=== PATIENT | male | born 1980 | race Caucasian/White ===

== ENCOUNTER 2017-05-08 09:06 | Observation (INO) | payer BC, SELFPAY ==
[2017-05-08] VITALS (8 sets, daily range): BP systolic 109–137; BP diastolic 70–89; PULSE 58–74; RESP 14–18; TEMP 36.3–37; O2SAT 98–100; BMI 25.7; BMI 25.8; BMI 26.6
--- NOTE | 2017-05-08 09:19 | EKG12_ITS ---
Test Reason : CP Blood Pressure : / mmHG Vent. Rate : 066 BPM Atrial Rate : 066 BPM P-R Int : 172 ms QRS Dur : 088 ms QT Int : 374 ms P-R-T Axes : 058 050 051 degrees QTc Int : 392 ms Sinus rhythm with occasional Premature ventricular complexes Otherwise normal ECG Confirmed by RAMON WINSTON, RUBY ([id number]), story editor FAUZIA EVANS ([id number]) on 05/12/2017 12:55:07 PM Referred By: ERICH Confirmed By:RUBY NAVARRO MD
--- NOTE | 2017-05-08 09:25 | RAD_ITS ---
STUDY: X-RAY CHEST REASON FOR EXAM: Male, 36 years old. Chest pain TECHNIQUE: Single AP portable view of the chest. COMPARISON: None. FINDINGS: The lungs are clear and expanded. There is no demonstrated pleural abnormality. Normal size heart. Normal mediastinum and hansa. Normal visualized pulmonary arteries. Normal visualized aortic arch and descending thoracic aorta. Normal visualized thoracic spine. Normal visualized ribs, clavicles, and shoulders. There is no demonstrated abnormality of the visualized soft tissue structures of the upper abdomen. RAD/Chest 1 View (Portable) IMPRESSION: Normal x-ray examination of the chest. Electronically Signed: Sonia Brunson MD at 9:50 EDT Tel , Service support ,
[2017-05-08] MEDS: Aspirin 81 MG TAB.CHEW 324 MG PO (09:26)
[2017-05-08] MEDS: 0.9% Normal Saline 1,000 ML 150 ML IV (09:27)
[2017-05-08 09:28] LABS: Absolute Lymphocyte Count 2.47 X10^3/ul (0.83-4.51); Absolute Neutrophil Count 3.9 X10^3/uL (2.0-7.7); Basophil# 0.02 X10^3/uL; Basophil% 0.3 % (0-1); Eosinophil# 0.17 X10^3/uL; Eosinophils% 2.4 % (0-5); Hemoglobin 15.4 g/dl (13.0-16.5); Lymphocyte # 2.47 X10^3/ul (4.0); Lymphocyte % 35.5 % (19-41); Mean Corp Hgb Conc 33.5 g/gl (32-36); Mean Corpuscular Hgb 31.8 pg (27.0-32.0); Mean Corpuscular Volume 94.8 fL (80-94); Mean Platelet Vol. 9.5 fl (6.2-12.0); Monocyte# 0.33 X10^3/uL; Monocyte% 4.7 % (0-10); Neutrophil # 3.94 X10^3/uL (2.7-7.7); Neutrophil % 56.8 % (47-70); Platelet Count 175 K/mm3 (150-450); RBC Distribution Width CV 12.9 % (11.6-14.6); Red Blood Count 4.85 M/mm3 (4.6-6.2)
[2017-05-08 09:34] LABS: POSITIVE COUNT NO; POSITIVE DIFFERENTIAL NO; POSITIVE MORPHOLOGY NO
[2017-05-08 09:49] LABS: Anion Gap 5 (5-15); BUN 10 mg/dL (7-18); BUN/Creat Ratio 9.8 RATIO (10-20); Calcium,Total 8.7 mg/dL (8.5-10.1); Chloride 106 mmol/L (98-107); Creatinine, Serum 1.02 mg/dL (0.70-1.30); EST Glomerular Filtration Rate 87 mL/min (>60); Est Glom Filt Rate - Afr Amer 105 mL/min (>60); Estimated Creatinine Clearance 104.58 ml/min; Glucose 109 mg/dL (74-106); Potassium 3.9 mmol/L (3.5-5.1); Sodium Level 140 mmol/L (136-145)
--- NOTE | 2017-05-08 09:52 | CASEMGMT ---
Addendum entered by Ashley Blankenship 05/08/17 10:42: Social Work Note Provided pt with a list of primary care physicians that are local to his residence and accept [place] insurance. Pt thanked SW and not additional needs identified at this time. CARLINE Solano, SENIOR IT ARCHITECT Original Note: Social Work Note SW in to complete initial assessment as pt is anticipated to be admitted. Introduced self and role at [facility]. The pt is alert and oriented x4 and presents with pleasant affect. Pt is accompanied by his sister and reports to have adequate supports. He lives alone in a one-story home and denies access issues. Reports to be employed FT and claims to be financially stable. Denies access issues and does not anticipate discharge needs. Pt reports tobacco use and that he is down to 1 pack per week. Denies hx of mental health diagnoses or symptoms. Denies having a PCP, but his sister reports they saw a Dr. Isidro before coming in. Pt reports to use [facility] in [place]. Pt made aware that case management will follow throughout his stay to assess for needs at discharge, understanding expressed. CARLINE Solano, SENIOR IT ARCHITECT
--- NOTE | 2017-05-08 10:44 | ED.VISSUMM ---
- ER Visit Summary Date of Service: 05/08/17 Chief Complaint: Chest pain History of Present Illness: The patient is a 36 M with intermittent chest pain for the last several years but states the pain has been constant now for the past several months. Patient has had syncope. The patient states his most recent episode was last week with a near syncopal episode. Patient states he feels a vibration in his chest and pressure in his head prior to the passing out. Significant family history is significant of a hereditary disorder where the middle muscle of the heart can thicken. Family member states they have been told that this can lead to sudden . Physical Examination: Vital signs are unremarkable. Patient sitting upright in bed no acute distress. Heart is irregular. Lung sounds are clear. Abdomen is soft nontender. Lower external examination was no calf tenderness or edema. Test Results: Portable chest x-ray is unremarkable. EKG is sinus at 66 with occasional PVCs. No acute ST change. Rhythm strip shows frequent PVCs. Occasionally the patient will go into a trigeminy pattern with 2 sinus beats followed by a PVC. CBC and chemistry studies are unremarkable. Troponin is less than 0.02. Emergency Department Course and Treatment: Patient was given aspirin on arrival. At this time like to admit the patient for echocardiogram to further evaluate potential cardiomyopathy and outlet obstruction. I also feel he should be observed for any arrhythmias. Hospitalist has been contacted. Treatment Plan: [] Disposition: Admit Impression: Chest pain This note was generated with [employer] dictation software. It may contain incorrect words, spelling, and punctuation that were not noted in review of the chart prior to signing ED Disposition - Plan for ED Patient: Chief Complaint: Chest Pain Referrals: Hammad Ferreira III, MD [Primary Care Provider] -
--- NOTE | 2017-05-08 11:03 | HP.PCM_ITS ---
Problem List (1) Chest pain Status: Acute Qualifiers: Chest pain type: unspecified Qualified Code(s): R07.9 - Chest pain, unspecified History of Present Illness Date of Admission: 05/08/17 Chief Complaint: Chest pain, ongoing for months The patient is a 36 year old M with positive family history of hypertrophic cardiomyopathy who comes in with complaints of chest pain ongoing for months. Pain is located in the left side of the chest, described as sharp, pressure- like like a bubble that is going to burst. This pain seems to radiate down his left arm, associated with palpitations and an episode of syncope a couple of weeks ago and had that episode of presyncope. Patient denies any nausea or diaphoresis with this. He came to the ED at the insistence of his mother and sister. He has never seen a manager property or primary care doctor for this. In the ED his vitals were stable, EKG shows no acute ST-T changes. Troponins were negative. Past Medical History Allergies No Known Allergies Allergy (Verified 05/08/17 09:08) Home Medications: Ambulatory Orders Medication Instructions Recorded NK [NK] 05/08/17 Surgical History: arthroscopy, knee Psychiatric History: No pertinent psych hx Lives: With Family Smoking Status: Current every day smoker - *Family History Maternal History Items: Heart Disease - HCOM Sibling History Items: Heart Disease - HCOM Review of Systems Constitutional: Denies: Anorexia, Chills, Fever, Malaise, Weakness, Weight Change Eyes: Denies: Blurred vision, Cataracts, Conjunctivae Inflammation HEENT: Denies: Difficulty Hearing, Dysphasia, Head Aches, Hearing Changes, Nasal bleeding, Sinus Congestion, Sinus Drainage Cardiovascular: Reports: Chest Pain, Chest Pressure, Syncope. Denies: Claudication, Edema, Orthopnea, Palpitations, Paroxysmal Noc. Dyspnea Respiratory: Denies: Cough, Hemoptysis, Shortness of breath at rest, Shortness of breath upon exertion, Sputum production Gastrointestinal: Denies: Abdominal Pain, Constipation, Nausea, Vomiting Genitourinary: Denies: Dysuria, Incontinence Musculoskeletal: Denies: Arm Pain, Joint Pain, Joint stiffness, Joint swelling, Joint Tenderness Skin: Denies: Dryness, Pruritis, Rash, Wounds Neurological: Denies: Difficulty swallowing, Focal weakness, Numbness, Tingling Psychiatric: Denies: Anxiety, Depression, Homicidal Ideations, Suicidal Ideations Hematologic/ Lymphatic: Denies: Easy Bruising, Easy Bleeding VTE Information - Inpt Only VTE Present on Admission: No VTE Pharm Prophylaxis ordered?: No Patient Problems: Active and Suspected Problems Chest pain (Acute) - Physical Exam General: Alert, Oriented x3, Cooperative, No apparent distress HEENT: Atraumatic, PERRLA, EOMI, Normocephalic Oral: Moist Mucosa Neck: Supple Lungs: Clear to auscultation, Normal air movement Cardiovascular: Regular rate, Regular Rhythm, Normal S1, Normal S2, No murmurs Abdomen: Bowel Sounds Present, Soft, Non Tender, Non-Distended, No Hepato- splenomegaly Extremities: No edema Skin: No rashes Musculoskeletal: No Tenderness to Palpation of Joints or Extremities Lymphatic: No Cervical, Supraclavicular, or Inguinal Adenopathy Neurological: Cranial nerves II-XII grossly intact Psych/Mental Status: Normal Affect, Appropriate Vital Signs Temp Pulse Resp BP Pulse Ox 97.4 F L 70 14 131/89 H 99 05/08/17 09:07 05/08/17 10:41 05/08/17 10:41 05/08/17 10:41 05/08/17 10:41 Oxygen Delivery Method Room Air Weight: 83.915 kg Body Mass Index (BMI) 25.7 Laboratory Tests Past 24 Hrs 05/08/17 05/08/17 09:15 09:15 WBC 7.0 RBC 4.85 Hgb 15.4 Hct 46.0 MCV 94.8 H MCH 31.8 MCHC 33.5 RDW 12.9 RDW Differential 44.0 H Plt Count 175 MPV 9.5 Immature Gran % (Auto) 0.300 Neut % (Auto) 56.8 Lymph % (Auto) 35.5 Mobile % (Auto) 4.7 Eos % (Auto) 2.4 Baso % (Auto) 0.3 Absolute Neuts (auto) 3.9 Absolute Lymphs (auto) 2.47 Total Counted Not Reportable Sodium 140 Potassium 3.9 Chloride 106 Carbon Dioxide 29.0 Anion Gap 5 BUN 10 Creatinine 1.02 Estim Creat Clear Calc 104.58 Est GFR (MDRD) Af Amer 105 Est GFR (MDRD) Non-Af 87 BUN/Creatinine Ratio 9.8 L Glucose 109 H Calcium 8.7 Troponin I < 0.02 Assessment/Plan Active and Suspected Problems Chest pain (Acute) 36 year old M with positive family history of hypertrophic cardiomyopathy who comes in with complaints of chest pain ongoing for months. 1. Atypical chest pain in a 36-year-old male, chronic smoker, positive family history of heart disease, symptomatic chest pain with syncope and presyncope. Vitals were stable, initial EKG was unremarkable, initial troponin negative Plan: Admit to PCU, cardiology consult, trend troponins, 2D echo, possible stress test per cardiology. 2. Syncope, unclear etiology, cardiology consulted 3. Chronic nicotine use disorder, on replacement patch. 4. DVT PPx - early ambulation Code Visit OBSV E&M: [id number] Initial observation care L3
--- NOTE | 2017-05-08 12:06 | ECHOD_ITS ---
Reason For Study: CHEST PAIN Procedure This was a 2D Doppler, Color Flow transthoracic echocardiogram. Exam performed portable in patient room. Left Ventricle Normal LV size. Left ventricular systolic function is normal. The estimated ejection fraction is 55 %. Normal diastology for age. No regional wall motion abnormalities noted. Right Ventricle Normal RV size. Normal systolic function. Atria Normal left atrium. Normal right atrium. Mitral Valve Normal mitral valve. Mild (1+) mitral valve insufficiency. Tricuspid Valve Normal tricuspid valve. Mild tricuspid valve insufficiency. Pulmonary artery systolic pressure is 25 mmHg. Aortic Valve Normal aortic valve. Trisinus/trileaflet aortic valve. Pulmonic Valve Normal pulmonic valve. Great Vessels Normal aortic root. The pulmonary artery is normal size. Normal inferior vena cava. Pericardium/Pleural No pericardial effusion. MMode/2D Measurements & Calculations LVIDd: 4.2 cm IVSd: 1.1 cm Ao root diam: 3.0 cm LVIDs: 3.2 cm LVPWd: 0.95 cm LA dimension: 3.6 cm RVDd: 2.9 cm FS: 24.9 % LAV(MOD-bp): 61.1 ml EDV(MOD-sp4): 103.2 ml EDV(MOD-sp2): 116.0 ml LAV(MOD-bp) Indexed: 30.0 ml/m2 ESV(MOD-sp4): 56.1 ml EF(MOD-sp2): 57.8 % LAV(MOD-sp2): 57.0 ml EF(MOD-sp4): 45.6 % LAV(MOD-sp4): 58.5 ml SV(MOD-sp4): 47.1 ml SV(MOD-sp2): 67.1 ml LA A4 area: 20.8 cm2 RA A4 area: 15.8 cm2 Doppler Measurements & Calculations MV E max sayra: 97.5 cm/sec Ao V2 max: 131.3 cm/sec LV V1 max: 109.6 cm/sec MV A max sayra: 50.7 cm/sec Ao max P.9 mmHg LV V1 max P.8 mmHg MV E/A: 1.9 PA V2 max: 90.3 cm/sec TR max sayra: 225.5 cm/sec TR max P.4 mmHg Interpretation Summary Normal LV size. Left ventricular systolic function is normal. The estimated ejection fraction is 55 %. Normal diastology for age. Mild tricuspid valve insufficiency. Ordering Physician: Rebeca Galo Referring Physician: NOEL ZIMMERMAN III Performed By: Jenna Ewing RDCS, RVT
[2017-05-08 13:03] LABS: Magnesium 2.2 mg/dL (1.6-2.6); Thyroid Stim Hormone (TSH) 1.03 uIU/mL (0.358-3.74)
--- NOTE | 2017-05-08 17:42 | PCM.DC ---
- Discharge Diagnoses Current Active Problems: Current Active and Chronic Problems Chest pain (Acute) You will use the following diet at home:: No restrictions Discharge Activity: Return to Normal Activity Additional Instructions: You will need to return for 30-day event monitor placement tomorrow. Follow up with Dr. Guallpa in one month unless recurrent symptoms before scheduled follow-up. Allergies/Adverse Reactions: Allergies No Known Allergies Allergy (Verified 05/08/17 09:08) Medications to take at Discharge NK [NK] 05/08/17 Orders to be completed after discharge: 30-Day Event Recorder [[facility]] Time Frame: 1 Day, Location: None Selected Primary Care Physician: Hammad Ferreira III, MD [Primary Care Provider] - Please follow up with your Primary Care Physician in: 1 Week Please Follow Up With: Jovani Guallpa MD When: 1 month Proposed Discharge Date: 05/08/17
--- NOTE | 2017-05-08 17:46 | PCM.DC.SUM ---
Discharge Date and Diagnosis Date of Admission: 05/08/17 Date of Discharge: 05/08/17 - Primary Discharge Diagnosis Active and Suspected Problems 1. Atypical chest pain 2. Syncope, etiology unclear - Secondary Discharge Diagnosis Tobacco dependence Hospital Course and Treatment Imaging Results: Diagnostic Data Chest X-Ray 05/08/17 09:25 IMPRESSION: Normal x-ray examination of the chest. Electronically Signed: Sonia Brunson MD at 9:50 EDT Tel , Service support , Dr. Guallpa- Cardiology Operations: None Procedures: 2-D Echocardiogram Summary of Care Provided: The patient is a 36 year old M admitted 05/08/17 due to chest pain which has been ongoing for months. He reports a positive family history of hypertrophic cardiomyopathy. He describes associated palpitations and episode of syncope a few weeks ago. He denied other associated complaints. EKG without ST T changes. Troponin negative. Cardiology consulted. Echocardiogram showed an EF of 55%, mild tricuspid valve insufficiency. Cardiology did not feel stress test was indicated at this time. Patient will be discharged on 30 day event monitor to assess for arrhythmia causes of chest pain/syncope. He will follow-up with Dr. Guallpa in 1 month. His chronic medical history is unremarkable with the exception of tobacco dependence. Smoking cessation was encouraged. Patient seen and examined prior to discharge. Heart rate regular rate and rhythm. Lungs clear. Abdomen soft, nontender. Neuro grossly intact. Vital signs stable. Patient is stable for discharge home with further follow-up with primary care physician and cardiology. This patient was seen by GIL Dooley under the supervision of Dr. Galo. Discharge Diet: No Restrictions Discharge Activity: Return to Normal Activity Call your doctor if you observe: Shortness of breath, Dizziness, Chest pain, Increased palpitations (irregular heartbeat), Calf discomfort Home Medications: Medications to take at Discharge NK [NK] 05/08/17 Other Amb Orders: 30-Day Event Recorder [[facility]] Time Frame: 1 Day, Location: None Selected Primary Care Physician: Hammad Ferreira III, MD [Primary Care Provider] - Please follow up with your Primary Care Physician in: 1 Week Please Follow Up With: Jovani Guallpa MD When: 1 month Disposition: Home Minutes spent on discharge:: 35 Patient Condition:: Stable Medical Necessity - Tobacco Use Smoking Status: Current every day smoker Meaningful Use Info Meaningful Use Diagnoses (Choose all that apply): None applicable
--- NOTE | 2017-05-08 17:50 | DS.PCM_ITS ---
Discharge Date and Diagnosis Date of Admission: 05/08/17 Date of Discharge: 05/08/17 - Primary Discharge Diagnosis Active and Suspected Problems 1. Atypical chest pain 2. Syncope, etiology unclear - Secondary Discharge Diagnosis Tobacco dependence Hospital Course and Treatment Imaging Results: Diagnostic Data Chest X-Ray 05/08/17 09:25 IMPRESSION: Normal x-ray examination of the chest. Electronically Signed: Sonia Brunson MD at 9:50 EDT Tel , Service support , Dr. Guallpa- Cardiology Operations: None Procedures: 2-D Echocardiogram Summary of Care Provided: The patient is a 36 year old M admitted 05/08/17 due to chest pain which has been ongoing for months. He reports a positive family history of hypertrophic cardiomyopathy. He describes associated palpitations and episode of syncope a few weeks ago. He denied other associated complaints. EKG without ST T changes. Troponin negative. Cardiology consulted. Echocardiogram showed an EF of 55%, mild tricuspid valve insufficiency. Cardiology did not feel stress test was indicated at this time. Patient will be discharged on 30 day event monitor to assess for arrhythmia causes of chest pain/syncope. He will follow- up with Dr. Guallpa in 1 month. His chronic medical history is unremarkable with the exception of tobacco dependence. Smoking cessation was encouraged. Patient seen and examined prior to discharge. Heart rate regular rate and rhythm. Lungs clear. Abdomen soft, nontender. Neuro grossly intact. Vital signs stable. Patient is stable for discharge home with further follow-up with primary care physician and cardiology. This patient was seen by GIL Dooley under the supervision of Dr. Galo. Discharge Diet: No Restrictions Discharge Activity: Return to Normal Activity Call your doctor if you observe: Shortness of breath, Dizziness, Chest pain, Increased palpitations (irregular heartbeat), Calf discomfort Home Medications: Medications to take at Discharge NK [NK] 05/08/17 Other Amb Orders: 30-Day Event Recorder [[facility]] Time Frame: 1 Day, Location: None Selected Primary Care Physician: Hammad Ferreira III, MD [Primary Care Provider] - Please follow up with your Primary Care Physician in: 1 Week Please Follow Up With: Jovani Guallpa MD When: 1 month Disposition: Home Minutes spent on discharge:: 35 Patient Condition:: Stable Medical Necessity - Tobacco Use Smoking Status: Current every day smoker Meaningful Use Info Meaningful Use Diagnoses (Choose all that apply): None applicable
== END 2017-05-08 17:44 | disposition home or self-care (01) ==
LOC: ED 09:44 → PCU 11:10
PROVIDERS: Admitting Provider Internal Medicine; Emergency Provider Emergency Medicine; Family Provider Family Medicine; PCP Family Medicine; Visit Provider Internal Medicine
DX: R07.89 Other chest pain (principal); R55 Syncope and collapse; F17.200 Nicotine dependence, unspecified, uncomplicated; Z82.49 Family history of ischemic heart disease and other diseases of the circulatory system; R00.2 Palpitations; I49.3 Ventricular premature depolarization; I08.1 Rheumatic disorders of both mitral and tricuspid valves
CPT/HCPCS: 71045; 80048; 83735; 84443; 84484; 85025; 93005; 93306; 96360; 96361; 99218; 99285; 99406; J7030; A4216; G0378

== ENCOUNTER 2018-10-05 18:13 | Emergency (ER) | payer SELFPAY ==
[2018-10-05 18:14] VITALS: BP 126/74; PULSE 96; RESP 15; TEMP 36.2; O2SAT 98; BMI 25.1
[2018-10-05 18:30] VITALS: O2SAT 98
--- NOTE | 2018-10-05 18:30 | EKG12_ITS ---
Test Reason : CP Blood Pressure : / mmHG Vent. Rate : 083 BPM Atrial Rate : 083 BPM P-R Int : 150 ms QRS Dur : 084 ms QT Int : 360 ms P-R-T Axes : 079 027 056 degrees QTc Int : 423 ms Normal sinus rhythm Normal ECG Confirmed by MELINDA WINSTON, TASHIA ([id number]), book editor IVONNE GARCIA ([id number]) on 10/09/2018 11:15:06 AM Referred By: MR Confirmed By:TASHIA LAWRENCE MD
--- NOTE | 2018-10-05 18:30 | RAD_ITS ---
STUDY: X-RAY CHEST REASON FOR EXAM: Male, 38 years old. Left arm pain TECHNIQUE: Frontal view COMPARISON: May 08, 2017 FINDINGS: The lungs are clear and expanded. There is no demonstrated pleural abnormality. Normal size heart. Normal mediastinum and hansa. Normal visualized pulmonary arteries. Normal visualized aortic arch and descending thoracic aorta. Normal visualized thoracic spine. Normal visualized ribs, clavicles, and shoulders. There is no demonstrated abnormality of the visualized soft tissue structures of the upper abdomen. RAD/Chest 1 View (Portable) IMPRESSION: Normal x-ray examination of the chest. Electronically Signed: Horace Guardado DO at 19:02 EDT Tel [phone], Service support ,
[2018-10-05 18:42] LABS: Absolute Lymphocyte Count 2.92 X10^3/uL (0.83-4.51); Absolute Neutrophil Count 6.8 X10^3/uL (2.0-7.7); Basophil# 0.03 X10^3/uL; Basophil% 0.3 % (0-1); Eosinophil# 0.06 X10^3/uL; Eosinophils% 0.6 % (0-5); Hematocrit 44.5 % (40-54); Hemoglobin 14.9 g/dL (13.0-16.5); Lymphocyte # 2.92 X10^3/ul (4.0); Lymphocyte % 28.1 % (19-41); Mean Corp Hgb Conc 33.5 g/dL (32-36); Mean Corpuscular Volume 92.7 fL (80-94); Mean Platelet Vol. 9.1 fl (6.2-12.0); Monocyte# 0.52 X10^3/uL; NRBC Flagged by Analyzer 0 % (0-5); Neutrophil # 6.79 X10^3/uL (2.7-7.7); Neutrophil % 65.3 % (47-70); Platelet Count 205 K/mm3 (150-450); White Blood Count 10.4 K/mm3 (4.4-11.0)
[2018-10-05 19:00] LABS: Anion Gap 5 (5-15); BUN 13 mg/dL (7-18); BUN/Creat Ratio 13.2 RATIO (10-20); Calcium,Total 8.8 mg/dL (8.5-10.1); Chloride 109 mmol/L (98-107); Creatinine, Serum 0.98 mg/dL (0.70-1.30); EST Glomerular Filtration Rate 90 mL/min (>60); Est Glom Filt Rate - Afr Amer 108 mL/min (>60); Estimated Creatinine Clearance 106.72 ml/min; Glucose 99 mg/dL (74-106); Potassium 3.5 mmol/L (3.5-5.1); Sodium Level 141 mmol/L (136-145)
[2018-10-05] MEDS: Aspirin 81 MG TAB.CHEW 324 MG PO (19:03)
[2018-10-05 19:06] LABS: D-Dimer Quantitative (DVT/PE) 0.45 FEU/ug/m (0.27-0.49)
--- NOTE | 2018-10-05 19:15 | ED.VIS.GEN ---
History of Present Illness Chief Complaint: Chest Pain Narrative: Patient presenting for evaluation secondary to chest pain. Patient states that he chronically has some pain in his left shoulder and arm, but over the course of the last 24 hours he feels that the pain is gotten worse. He reports that it is now generalized across his chest. Seems to be worse with change in position as well as exertion. Has been associated with some shortness of breath and lightheadedness. Patient denies that there is any sort of hemoptysis associated with this. Patient has an underlying history of smoking but no other cardiovascular risk factors. Patient had a similar presentation about a year ago and had a negative cardiac stress test as well as a normal echocardiogram. Patient is a concrete mixing truck driver, spends a lot of time seated. He denies any asymmetric calf swelling. Review of systems otherwise negative. Past Medical History - Allergies and Home Meds Allergies/Adverse Reactions: Allergies No Known Allergies Allergy (Verified 05/08/17 09:08) Primary Care Physician: Hammad Ferreira III, MD [Primary Care Provider] - Past Medical History: None Surgical History: arthroscopy, knee Smoking Status: Current every day smoker - Family History Maternal Family History: Reports: Heart Disease - HCOM Sibling Family History: Reports: Heart Disease - HCOM Review of Systems All systems negative except as indicated General: Denies: Fever Cardiovascular: Reports: Chest pain Respiratory: Reports: Dyspnea. Denies: Cough Physical Exam Vital Signs/Narrative: Vital Signs Temp Pulse Resp BP Pulse Ox 10/05/18 18:30 98 10/05/18 18:14 97.2 F L 96 15 126/74 H 98 General: Well nourished, Well developed, No Acute Distress Head: Normocephalic, Atraumatic Eyes: Perrl, EOMI ENT: Moist mucous membranes, No rhinorrhea Neck: Supple, Nontender Cardiovascular: Regular rate, Regular rhythm, No murmurs Respiratory: No distress, CTA bilaterally, Chest nontender, Chest tenderness - Left anterior without any evidence of crepitus Abdomen: Soft, Nontender, Nondistended, Normal bowel sounds Back: Nontender, Normal Inspection Extremities: Nontender, No edema Skin: Normal color, No rash Neurological: Alert, Oriented x3, Cranial nerves II-XII grossly intact, Normal Strength, Normal Sensation Psychological: Normal affect, Normal Mood Diagnostic/Tx/Re-eval Chest X-Ray - ED: - - 1 view chest by my personal interpretation as well as radiology is negative for acute process. No evidence of infiltrate cardiomegaly or bony processes. No evidence of pneumothorax. - EKG Initial EKG Interpretation: - - Sinus rhythm of [address] segments normal T waves no evidence of acute ischemia or arrhythmia. - Medical Decision Making Patient presented secondary to chest pain. Patient has benign physical exam. EKG was unremarkable. Chest x-ray was negative. CBC chemistry and troponin were negative. Due to the patient's history of frequent driving a d-dimer was obtained which was also found to be negative. Patient at this time is a heart score of 2, and a stress test within the last year. I do not believe he requires admission. Patient likely has pain of a musculoskeletal etiology. He will be discharged with a course of Naprosyn and follow-up with primary care. All questions were answered and the patient was discharged. ED Disposition - Plan for ED Patient: Disposition: Home or Assisted Living Diagnosis: Musculoskeletal chest pain Instructions: CHEST PAIN, Uncertain Cause Prescriptions: Naproxen [Naprosyn] 500 mg PO BID PRN #20 tab Prescription Printed Referrals: Hammad Ferreira III, MD [Primary Care Provider] - 1 Week
[2018-10-05] MEDS: Ketorolac 15 MG/ML Vial IV (19:39)
[2018-10-05 19:40] VITALS: BP 136/84; PULSE 68; RESP 17; O2SAT 97
== END 2018-10-05 19:56 | disposition home or self-care (01) ==
PROVIDERS: Emergency Provider Emergency Medicine; Family Provider Family Medicine; PCP Family Medicine
DX: R07.89 Other chest pain (principal); F17.200 Nicotine dependence, unspecified, uncomplicated
CPT/HCPCS: 71045; 80048; 84484; 85025; 85379; 93005; 96374; 99284; A4216

== ENCOUNTER 2023-09-18 10:09 | Emergency (ER) | payer OTHER, SELFPAY ==
[2023-09-18 10:10] VITALS: BP 138/98; PULSE 77; RESP 17; TEMP 36.1; O2SAT 99; BMI 27.2
[2023-09-18 11:10] VITALS: BP 128/76; PULSE 66; RESP 15; O2SAT 96
--- NOTE | 2023-09-18 11:24 | EKG12_ITS ---
Test Reason : CP Blood Pressure : / mmHG Vent. Rate : 076 BPM Atrial Rate : 076 BPM P-R Int : 146 ms QRS Dur : 092 ms QT Int : 404 ms P-R-T Axes : 047 012 030 degrees QTc Int : 454 ms Normal sinus rhythm Normal ECG Confirmed by RAMON WINSTON, RUBY ([id number]), editor greeting card COSMO VAIL ([id number]) on 09/20/2023 9:28:16 AM Referred By: WANG/JOSELITO Confirmed By:RUBY NAVARRO MD
--- NOTE | 2023-09-18 11:25 | ED.VIS.CHEST ---
HPI History of Present Illness Chief Complaint: Chest Pain Informant: patient Narrative Narrative: Patient presents with episodic chest discomfort that has been going on for longer than 5 years, he states it is almost every day. This time is been there since yesterday, continuously overnight, he is seen here at about 11 AM. He states that his left side, sometimes goes down his left arm. No other associated symptoms. Patient states he was told he has enlargement of the muscle in the center of his heart, he had an echocardiogram 5 years ago when he was 38, he was told that he was too young for surgery at that time but to come back when I am 43. He is 43 now. He has had no exertional lightheadedness or unexplained syncopal episodes. He denies any triggers for the symptoms except for when he is stressed or dealing with his children, he oftentimes gets the discomfort. He denies orthopnea or lying down to trigger the discomfort. He has tried no medications for it. He denies any leg swelling. He denies any other symptoms. 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 PFSH [facility] Medical History unable to obtain Home Medications ?Medication ?Instructions ?Recorded ?Last Taken ?Type naproxen 500 mg tablet 500 mg PO BID PRN #20 tabs 10/05/18 Unknown Rx Allergy/AdvReac Type Severity Reaction Status Date / Time No Known Allergies Allergy Verified 05/08/17 09:08 Social History Smoking Status: Current every day smoker tobacco type: cigarettes ROS ROS ED Constitutional Constitutional ED: Denies chills or fever(s) Eyes Eyes: Denies change in vision or diplopia ENT ENT ED: Denies rhinorrhea or sore throat Cardiovascular Cardiovascular: Reports chest pain; Denies lightheadedness, palpitations or syncope Respiratory/Chest Respiratory/Chest: Denies cough or dyspnea Gastrointestinal Gastrointestinal: Denies abdominal pain, diarrhea, nausea or vomiting Genitourinary Genitourinary ED: Denies dysuria or hematuria Musculoskeletal Musculoskeletal: Denies back pain or neck pain Integumentary Denies abscess or rash Neurologic Neurologic: Denies headache(s), paresthesias or weakness Psychiatric Psychiatric: Denies anxiety or suicidal thoughts EXAM Physical Exam Const Vital Signs: 09/18/23 10:10 09/18/23 11:10 09/18/23 11:30 Temperature 96.9 F L Temperature Source Temporal Pulse Rate 77 66 Respiratory Rate 17 15 Respiratory Effort Blood Pressure 138/98 H 128/76 H Blood Pressure Mean 111 93 Pulse Ox 99 96 Oxygen Delivery Method Room Air Room Air Room Air 09/18/23 11:30 09/18/23 12:00 Temperature Temperature Source Pulse Rate 64 Respiratory Rate 16 Respiratory Effort Normal Blood Pressure 147/107 H Blood Pressure Mean 120 Pulse Ox 95 Oxygen Delivery Method Room Air Positive well nourished and well developed General Appearance ED: well developed and NAD HEENT Reports moist mucous membranes normocephalic and atraumatic Eyes PERRL and EOMs intact bilaterally Neck full ROM, supple and no JVD Resp normal respiratory effort and clear to auscultation bilaterally Cardio regular rate, regular rhythm and no murmurs Rate: Negative for tachycardic GI non-tender and non-distended Auscultation: normoactive bowel sounds Palpation: soft Back/Spine no CVA tenderness General Back: other FROM Extremity normal to inspection General Extremety ED: Negative for edema, pulses abnormal or tenderness General Extremity: Negative for edema or pulses abnormal Neuro oriented x3, CN's II-XII intact bilaterally and no sensory deficits noted Sensorium / Orientation: awake and alert Motor Exam: strength 5/5 throughout Skin no rashes or lesions noted and no wounds Heart Score History: Slightly/Non-Suspicious ECG: Normal Age: </= 45 years Risk Factors: 1 or 2 Risk Factors Troponin: </= Normal Limit Score: 1 MDM MDM MDM Narrative Medical decision making narrative: Patient suggests maybe he has septal hypertrophy, he has no symptoms of outflow obstruction, and his echo from 6 years ago shows no evidence of any of this, and was essentially normal see below. I reassured him that regardless, these issues should not be causing pain, he is a smoker which is his main risk factor for CAD. His EKG is normal, his troponin is normal, given that he has had symptoms last night overnight all night and this morning continuously, this essentially rules out acute coronary syndrome. His symptoms are atypical anyhow. Reassured, will discharge him home to follow-up with his primary care doctor as needed. In reviewing his old records, he did have a syncopal episode and was on a monitor, and according to the diarrhea often times when he would complain of chest discomfort he was having PVCs. I do not see any on his EKG or monitor while I am examining him, but I explained that. If he indeed is continue to have occasional PVCs cause any symptoms, follow-up with cardiology would be reasonable. History & Record Review Additional record(s) reviewed:: Other (Echocardiogram 2018: Normal LV. Normal ejection fraction 55%. Mild TV insufficiency and normal diastology.) Lab Data Attestation: I reviewed the patient's lab results. Labs: Laboratory Results - last 24 hr 09/18/23 11:15 WBC 7.4 RBC 4.90 Hgb 14.6 Hct 45.1 MCV 92.0 MCH 29.8 MCHC 32.4 RDW Std Deviation 43.3 RDW Coeff of [place] 12.8 Plt Count 225 MPV 8.6 Immature Gran % (Auto) 0.400 Neut % (Auto) 65.4 Lymph % (Auto) 26.8 [place] % (Auto) 5.0 Eos % (Auto) 2.0 Baso % (Auto) 0.4 Absolute Neuts (auto) 4.8 Absolute Lymphs (auto) 1.97 Nucleated RBC % 0 Sodium 136 Potassium 4.2 Chloride 107 Carbon Dioxide 26.0 Anion Gap 3 L BUN 13 Creatinine 0.82 Estim Creat Clear Calc 117.46 Est GFR (MDRD) Af Amer 131 Est GFR (MDRD) Non-Af 108 BUN/Creatinine Ratio 15.9 Glucose 100 Calcium 9.0 Troponin I High Sens 8 Radiography Diagnostic Testing: Clinical Impression(s) from Imaging Studies Chest X-Ray 09/18/23 11:36 IMPRESSION: Normal x-ray examination of the chest. Electronically Signed: Eloy Eduardo MD at 11:46 EDT , Chest x-ray 1 view on my interpretation normal. Radiology interpretation reviewed, I agree with it. Rhythm Strip Rhythm Strip: Sinus Rhythm Rate: 75 Ectopy: None EKG Initial EKG: Attestation: I personally reviewed and interpreted this EKG as follows: Interpretation: Sinus Rhythm and No Acute Injury Pattern Comments: Normal EKG. No criteria for LVH. Prior EKG tracings: available for review Prior: Unchanged Discharge Plan Triage Chief Complaint: Chest Pain ED Provider: Juan Gamez Dx/Rx/DC Orders Clinical Impression: Chest pain Instructions: ED Chest Pain, Uncertain Cause Prescriptions: No Action naproxen 500 MG tablet 500 mg PO BID PRN Qty: 20 0RF Primary Care Provider: Randy Physician,Lauren Primary Referrals: Didier Richey MD [Med Staff - Active Staff] - NOT,DEFINED [Non-Staff] - Print Language: Hebrew Disposition Disposition: Home, Self Care
[2023-09-18] MEDS: Lidocaine 2% Viscous15 ML UDC 15 ML PO (11:34)
[2023-09-18] MEDS: Mag /Aluminum/Simeth WCH UDC 30 ML ORAL.SUSP PO (11:34)
--- NOTE | 2023-09-18 11:36 | RAD_ITS ---
STUDY: X-RAY CHEST REASON FOR EXAM: Male, 43 years old. Chest pain TECHNIQUE: Single AP portable view of the chest. COMPARISON: Comparison is made with prior study dated October 05, 2018. FINDINGS: EKG electrodes are seen. The lungs are clear and expanded. There is no demonstrated pleural abnormality. Normal size heart. Normal mediastinum and hansa. Normal visualized pulmonary arteries. Normal visualized aortic arch and descending thoracic aorta. Normal visualized thoracic spine. Normal visualized ribs, clavicles, and shoulders. There is no demonstrated abnormality of the visualized soft tissue structures of the upper abdomen. RAD/Chest 1 View (Portable) IMPRESSION: Normal x-ray examination of the chest. Electronically Signed: Eloy Eduardo MD at 11:46 EDT ,
[2023-09-18 11:48] LABS: Absolute Lymphocyte Count 1.97 X10^3/uL (0.83-4.51); Absolute Neutrophil Count 4.8 X10^3/uL (2.0-7.7); Basophil# 0.03 X10^3/uL; Basophil% 0.4 % (0-1); Eosinophil# 0.15 X10^3/uL; Hematocrit 45.1 % (40-54); Hemoglobin 14.6 g/dL (13.0-16.5); Lymphocyte # 1.97 X10^3/ul (0.83-4.51); Lymphocyte % 26.8 % (19-41); Mean Corp Hgb Conc 32.4 g/dL (32-36); Mean Corpuscular Hgb 29.8 pg (27.0-32.0); Mean Platelet Vol. 8.6 fl (6.2-12.0); Monocyte# 0.37 X10^3/uL; NRBC Flagged by Analyzer 0 % (0-5); Neutrophil # 4.81 X10^3/uL (2.7-7.7); Neutrophil % 65.4 % (47-70); Platelet Count 225 K/mm3 (150-450); RBC Distribution Width CV 12.8 % (11.6-14.6); RBC Distribution Width SD 43.3 fl (35.1-43.9); White Blood Count 7.4 K/mm3 (4.4-11.0)
[2023-09-18 12:00] VITALS: BP 147/107; PULSE 64; RESP 16; O2SAT 95
[2023-09-18 12:09] LABS: Anion Gap 3 (5-15); BUN 13 mg/dL (7-18); BUN/Creat Ratio 15.9 RATIO (10-20); Chloride 107 mmol/L (98-107); Creatinine, Serum 0.82 mg/dL (0.70-1.30); EST Glomerular Filtration Rate 108 mL/min (>60); Est Glom Filt Rate - Afr Amer 131 mL/min (>60); Estimated Creatinine Clearance 117.46 ml/min; Glucose 100 mg/dL (74-106); Potassium 4.2 mmol/L (3.5-5.1); Sodium Level 136 mmol/L (136-145); Troponin-I HS 8 pg/mL (3.0-78.0)
== END 2023-09-18 13:15 | disposition home or self-care (01) ==
PROVIDERS: Emergency Provider Emergency Medicine; Visit Provider Emergency Medicine
DX: R07.9 Chest pain, unspecified (principal); F17.210 Nicotine dependence, cigarettes, uncomplicated
CPT/HCPCS: 71045; 80048; 84484; 85025; 93005; 99284; A4216